=== PATIENT | male | born 1965 | race African-American/Black ===

== ENCOUNTER 2020-10-10 01:16 | Emergency (ER) | payer OTHER ==
[~2020-10-10] VITALS: Ht 180.3 cm; Wt 145.0 kg
[2020-10-10] MEDS ORDERED: AMLODIPINE 10MG TABLET PO ONE (03:00)
[2020-10-10 04:03] VITALS: BP 162/103
== END 2020-10-10 04:46 | disposition home or self-care (01) ==
LOC: ER 01:16
DX: I10 Essential (primary) hypertension (principal); R04.0 Epistaxis
CPT/HCPCS: 99283